=== PATIENT | male | born 1945 | race Caucasian/White ===

== ENCOUNTER 2025-07-23 06:10 | Day surgery (SDC) | payer OTHER, SELFPAY ==
[2025-07-22 10:58] LABS: Hematocrit 40.3 % (39.0-52.0); Hemoglobin 13.7 g/dL (13.0-18.0); Mean Corp Hgb Conc. 34.0 g/dL (33.0-37.0); Mean Corpuscular Volume 82.1 fL (80.0-94.0); Nucleated Red Blood Cells % 0 % (-); Platelet Count 142 10^3/uL (130-400); Red Cell Dist. Width 13.8 % (11.5-14.5)
[2025-07-22 11:27] LABS: Blood Urea Nitrogen 20 mg/dl (9-20); Calcium 9.3 mg/dl (8.4-10.2); Carbon Dioxide 30 mmol/L (22-30); Chloride 105 mmol/L (98-107); Glucose 117 mg/dl (70-99); Potassium 5.3 mmol/L (3.5-5.1); Sodium 140 mmol/L (135-145); eGFR 47.06
[2025-07-22 14:19] VITALS: BMI 34.7
[2025-07-23] VITALS (7 sets, daily range): BP systolic 94–161; BP diastolic 52–86; BMI 34.7
[2025-07-23] MEDS: NORMOSOL-R/PLASMALYTE-A 1000 IV (08:58)
[2025-07-23 09:00] LABS: Glucose - Point of Care 121 mg/dl (70-99)
[2025-07-23] MEDS: CELEBREX 200 MG PO (09:47)
[2025-07-23] MEDS: TYLENOL 1000 MG PO (09:47)
[2025-07-23 11:36] LABS: Glucose - Point of Care 112 mg/dl (70-99)
== END 2025-07-23 13:10 | disposition home or self-care (01) ==
LOC: SDS 06:10
PROVIDERS: ATTENDING PHYSICIAN Orthopaedic Surgery Hand Surgery; FAMILY PHYSICIAN Family Medicine
DX: L02.512 Cutaneous abscess of left hand (principal)
CPT/HCPCS: 11044; 36415; 80048; 82962; 85025; 87070; 87075; 87147; 87186; 87205; 93005